=== PATIENT | male | born 1970 | race Caucasian/White ===

== ENCOUNTER 2021-05-04 15:03 | Emergency (ER) | payer BC, SELFPAY ==
[2021-05-04 15:10] VITALS: BP 170/105; PULSE 57; RESP 16; TEMP 35.9; O2SAT 98
--- NOTE | 2021-05-04 15:15 | DI.RAD_ITS ---
Exam(s) XR TIB/FIB LT EXAM: XR TIB/FIB LT CLINICAL HISTORY: pain, trauma. TECHNIQUE: 2D digital imaging was performed of the left tibia and fibula. Four images were obtained. AP and lateral views were obtained. COMPARISON: No exams were available for comparison FINDINGS: BONES: There is an acute nondisplaced fracture at the proximal fibular metaphysis. No bony destructi ve lesion is seen. Visualized portion of knee and ankle joints are unremarkable. SOFT TISSUE: There is soft tissue swelling of the leg particularly laterally. No radiopaque foreign bodies are seen in the soft tissues. IMPRESSION: Nondisplaced proximal fibular fracture. DATA REPOSITORY: RADIATION DOSE DELIVERED:
--- NOTE | 2021-05-04 15:21 | W.ED.GENAD ---
Discharge Plan Disposition Patient Disposition: HOME Condition: Stable Discharge Details Clinical Impression: Closed fracture of proximal end of left fibula Primary Care Provider: Brooke,Local ED Provider: Kirill Gil Discharge Instructions Instructions: Leg Fracture (ED) Additional Instructions: Please use leg mobilizer and crutches. Weight-bear as tolerated. Please take ibuprofen over the counter. Take 600mg by mouth every 6 hours as needed for pain. Please take acetaminophen (tylenol) - 650mg every 6 hours by mouth as needed for pain. Please follow-up with orthopedics. Call tomorrow to schedule follow-up. Your blood pressure was noted to be elevated on arrival today. I suspect this is secondary to pain but you should have this repeated and checked by your primary care physician. Additional diagnostics and treatment may be necessary should blood pressure remain elevated. Referrals: [facility] [Provider Group] Discharge Data Discharge Date/Time-TO BE ENTERED AT DEPARTURE: 05/04/21 16:54 Medical Decision Making 1524 -- 50yo m here after fall while skiing with pain in left mid lower leg. No other injury. Very uncomfortable. Neurovascularly intact distally. Plan for xray to assess for fracture. Dilaudid IM for severe pain. 1620 -- xray reviewed and interpreted by radiology: nondisplaced prox fibular fx. Peroneal nerve motor and sensory function intact. I called and spoke with Dr. Lomas, discussed ED presentation course, he recommends Andrew versus knee immobilizer, crutches and follow-up outpatient. Results and discharge plan discussed with the patient. HPI General Mode of arrival: wheelchair. Date/Time Provider Initiated Documentation: 05/04/21 15:20. Limitations to Documentation: no limitations. Information obtained by: patient. History of Present Illness 50 year old M presents to the emergency department with the chief complaint of leg pain, described as moderate, Quality is described as aching, and is localized to the left and lower extremity. Patient reports no radiation. Patient started experiencing this hour(s) (1) and it has been constant. Immobilization improves symptom(s), Movement worsens symptoms . Patient notes no other symptoms.. Patient did receive the following treatments prior to arrival, splint Related Data Allergies Allergy/AdvReac Type Severity Reaction Status Date / Time No Known Allergies Allergy Unverified 05/04/21 15:12 General Stated Complaint: Orthopedic STARLA: 3 Review of Systems Constitutional Constitutional: Denies weakness Cardiovascular Cardiovascular: Denies chest pain and Denies dyspnea Respiratory Respiratory: Denies cough and Denies dyspnea Gastrointestinal Gastrointestinal: Denies abdominal pain Musculoskeletal Musculoskeletal: Reports as per HPI, Denies numbness and Denies tingling Neurologic Neurologic: Denies numbness, Denies tingling and Denies weakness PFSH All Active Problems (Updated 05/04/21 @ 16:47 by Kirill Gil MD) Closed fracture of proximal end of left fibula (Acute) Social History Smoking/Tobacco Use Status: Never Smoking risk assessment performed?: Yes Alcohol Intake: current Alcohol Intake frequency: a few times a week Alcohol type: beer, wine and hard liquor Drug use: Never Substance use type: does not use Do you feel safe at home: Yes Do you feel safe in your relationship?: Yes Exam Const General: cooperative and no acute distress HENMT Head: normocephalic and atraumatic Eyes EOM: EOM intact bilaterally Neck Neck: trachea midline Resp Auscultation: clear to auscultation bilaterally, no rales, no rhonchi and no wheezes Cardio Rate: regular rate and not tachycardic Rhythm: regular rhythm Pulses: dorsalis pedis present on the left 2+ GI Palpation: soft, not firm, no guarding, no masses, not rigid and nontender Skin General skin exam: no rashes or lesions noted Neuro General: patient alert, patient awake, patient oriented x3 and tone normal Extrem General: no edema Left lower extremity: knee Details: no tenderness and no swelling and lower leg Details: tenderness Location: of the midshaft fibula Psych Appearance: grossly normal Mental Status: mental status grossly normal Speech and Movement: speech and movement normal Course Vital Signs Vital signs: Vital Signs Temperature 35.9 C L 05/04/21 15:10 Pulse 57 L 05/04/21 15:10 Respiratory Rate 16 05/04/21 15:10 Blood Pressure 170/105 H 05/04/21 15:10 Pulse Oximetry 98 05/04/21 15:10 Temperature 35.9 C L 05/04/21 15:10 Temperature Source Temporal Artery Scan 05/04/21 15:10 Pulse 57 L 05/04/21 15:10 Respiratory Rate 16 05/04/21 15:10 Respiratory Effort Non-Labored 05/04/21 15:15 Blood Pressure 170/105 H 05/04/21 15:10 Blood Pressure Position Sitting 05/04/21 15:10 Pulse Oximetry 98 05/04/21 15:10 Pain Level 4 05/04/21 15:10 PAWSS Have you Been Recently Intoxicated or Drunk Within the Last 30 days?: No Have you Ever Experienced Previous Episodes of Alcohol Withdrawal?: No Have you ever Experienced Withdrawal Seizures?: No Have you ever Experienced Delirium Tremens(DT)s?: No Have you ever undergone Alcohol Rehabilitation Treatment (i.e, inpt ot outpatient treatment programs)?: No Have you ever Experienced Blackouts?: No Have you ever Combined Alcohol with other Downers within the last 90 days?: No Have you ever Combined Alcohol with any other Substance of Abuse during the last 90 days?: No Positive Blood Alcohol level on Presentation? [PCS.BAL]: No Evidence of Increased Autonomic Activity (i.e. HR>120, tremor, sweating, agitation, nausea)?: No Result: 0
[2021-05-04] MEDS: HYDROmorphone 2 MG/ML VIAL 1 MG IM (15:25)
[2021-05-04 16:55] VITALS: BP 146/92; PULSE 86; RESP 14
--- NOTE | 2021-05-04 17:16 | NUR.NOTE ---
Faxed referral to Ortho at [facility]
== END 2021-05-04 16:54 | disposition home or self-care (01) ==
PROVIDERS: Emergency Provider Student in an Organized Health Care Education/Training Program
DX: S82.492A Other fracture of shaft of left fibula, initial encounter for closed fracture (principal); V00.321A Fall from snow-skis, initial encounter
CPT/HCPCS: 96372; 99284; 73590; 99283

== ENCOUNTER 2021-05-09 11:49 | Outpatient (CLI) | payer BC, SELFPAY ==
--- NOTE | 2021-05-09 11:30 | DI.RAD_ITS ---
Exam(s) XR ANKLE LT 2V EXAM: XR ANKLE LT 2V CLINICAL HISTORY: f/u proximal fib fracture. TECHNIQUE: 2D digital imaging was performed. COMPARISON: CR XR TIB/FIB LT from 05/04/2021 CR XR TIB/FIB LT from 05/04/2021 FINDINGS: Single stress view of the left ankle reveals no widening of the mortise. Talar dome appears unremark able. There is mild soft tissue swelling laterally. IMPRESSION: DATA REPOSITORY: RADIATION DOSE DELIVERED:
== END 2021-05-09 11:50 | disposition home or self-care (01) ==
LOC: DIORS 11:49
PROVIDERS: Visit Provider Physician Assistant
DX: S82.832D Other fracture of upper and lower end of left fibula, subsequent encounter for closed fracture with routine healing (principal); V00.321D Fall from snow-skis, subsequent encounter
CPT/HCPCS: 73600